=== PATIENT | male | born 1985 | race Caucasian/White ===

== ENCOUNTER → 2024-04-10 | Emergency (ER) | payer MEDICAID ==
[~2024-04-10] VITALS: Ht 170.2 cm; Wt 70.5 kg
[~2024-04-10] MED LIST: ACET-3385 PO; CALC625T66 PO; CALC625T9 PO; HYDR-4808 PO; HYDR50CA7 PO; QUET300T5 PO
[2024-04-10 10:06] VITALS: BP 130/69; PULSE 98; RESP 18; TEMP 98.2; O2SAT 97
== END | disposition home or self-care (01) ==
LOC: EMS 10:05
DX: F20.9 Schizophrenia, unspecified (principal); Z76.0 Encounter for issue of repeat prescription; F12.90 Cannabis use, unspecified, uncomplicated; Z88.6 Allergy status to analgesic agent
CPT/HCPCS: 99281; Z7502

== ENCOUNTER 2024-04-26 09:09 | Emergency (ER) | payer MEDICAID ==
[~2024-04-26] VITALS: Ht 170.2 cm; Wt 75.0 kg
[2024-04-26 09:11] VITALS: TEMP 98.5
[2024-04-26 09:21] VITALS: BP 116/64; PULSE 83; RESP 18; O2SAT 96
[2024-04-26] MEDS ORDERED: HYDR50CA7 PO (09:25)
[2024-04-26] MEDS ORDERED: QUET300T5 PO (09:25)
== END 2024-04-26 10:00 | disposition home or self-care (01) ==
LOC: EMS 09:11
DX: F20.9 Schizophrenia, unspecified (principal); F12.90 Cannabis use, unspecified, uncomplicated; Z76.0 Encounter for issue of repeat prescription; Z72.89 Other problems related to lifestyle; Z88.6 Allergy status to analgesic agent; Z91.018 Allergy to other foods
CPT/HCPCS: 99281; Z7502

== ENCOUNTER 2024-09-11 11:24 | Emergency (ER) | payer MEDICAID, OTHER ==
[~2024-09-11] VITALS: Ht 167.6 cm; Wt 68.2 kg
[~2024-09-11 11:24] MED LIST changes: -ACET-3385 PO; -CALC625T66 PO; -CALC625T9 PO; -HYDR-4808 PO
[2024-09-11 11:28] VITALS: TEMP 98.1
[2024-09-11 13:57] VITALS: BP 131/76; PULSE 95; RESP 18; O2SAT 97
== END 2024-09-11 14:12 | disposition home or self-care (01) ==
LOC: EMS 11:32
DX: H26.8 Other specified cataract (principal); H53.8 Other visual disturbances; F20.9 Schizophrenia, unspecified; F12.90 Cannabis use, unspecified, uncomplicated; Z88.6 Allergy status to analgesic agent; Z91.018 Allergy to other foods; Z79.899 Other long term (current) drug therapy
CPT/HCPCS: 99282; Z7502

== ENCOUNTER 2024-12-03 20:53 | Inpatient (IN) | payer MEDICAID, OTHER ==
[~2024-12-03] VITALS: Ht 175.3 cm; Wt 72.6 kg
[2024-12-03 22:01] LABS: PLATELET COUNT (AUTO) 331 K/uL (150-450); RED BLOOD CELL COUNT(AUTO) 4.97 MIL/uL (4.50-5.90); RED CELL DISTRIBUTION WIDTH 14.1 % (11.5-14.5); WHITE BLOOD COUNT (AUTO) 14.6 K/uL (4.5-11.0)
[2024-12-03 22:14] LABS: CALCIUM, TOTAL 9.3 mg/dL (8.8-10.5); CREATININE 0.64 mg/dL (0.60-1.30); GLOMERULAR FILTR. RATE CALC > 60 mL/min (>60); GLUCOSE,RANDOM 130 mg/dL (70-110); SODIUM SERUM 139 mmol/L (136-145); UREA NITROGEN, BLOOD 8 mg/dL (7-18)
[2024-12-04 00:40] VITALS: O2SAT 98
[2024-12-04 00:47] LABS: COVID AG,FIA SOURCE NASAL SWAB
[2024-12-04 01:00] LABS: SARS-COV2 (COVID) ANTIGEN,FIA Negative (Negative)
[2024-12-04 03:53] VITALS: BP 146/95; PULSE 105; RESP 18; TEMP 98.2; O2SAT 96
[2024-12-04 10:54] VITALS: BP 127/85; PULSE 87; RESP 16; TEMP 98.1; O2SAT 100
[2024-12-04] MEDS ORDERED: GuaiFENesin/D-METHORPHAN [SUGAR-FREE] 200-20MG/10 ML SYRUP UDCUP PO PRN (13:30)
[2024-12-04] MEDS ORDERED: MAG HYDROX/ALUMINUM HYD/SIMETH ES 30 ML SUSPENSION UDCUP PO PRN (13:30)
[2024-12-04] MEDS ORDERED: ALBUTEROL SULFATE HFA 90 MCG/PUFF 8 GM INHALER IH PRN (13:30)
[2024-12-04] MEDS ORDERED: LOPERAMIDE HCL 2 MG CAPSULE PO PRN (13:30)
[2024-12-04] MEDS ORDERED: NICOTINE 14 MG/24 HOUR PATCH TD PRN (13:30)
[2024-12-04] MEDS ORDERED: ACETAMINOPHEN 325 MG TABLET PO PRN (13:30)
[2024-12-04] MEDS ORDERED: PETROLATUM,WHITE 28 GM JELLY TP PRN (13:30)
[2024-12-04] MEDS ORDERED: MAGNESIUM HYDROXIDE SUSPENSION 30 ML UDCUP PO PRN (13:30)
[2024-12-04] MEDS ORDERED: ONDANSETRON 4 MG TABLET PO PRN (13:30)
[2024-12-04] MEDS ORDERED: DOCUSATE SODIUM 100 MG CAPSULE PO PRN (13:30)
[2024-12-04 20:23] VITALS: BP 132/89; PULSE 107; RESP 16; TEMP 98.1; O2SAT 97
[2024-12-04] MEDS: ZOLPIDEM TARTRATE 10 MG TABLET PO PRN (21:24)
[2024-12-05 09:16] LABS: CHOL/HDL RATIO 2.9 (4.2-7.3); LDL CHOL (CALC.) 115.0 mg/dL (0-130)
[2024-12-05] MEDS: PALIPERIDONE 6 MG ER TABLET PO SCH (09:28)
[2024-12-05 09:56] VITALS: BP 118/91; PULSE 100; RESP 16; TEMP 98; O2SAT 96
[2024-12-05 20:42] VITALS: BP 145/96; PULSE 102; RESP 16; TEMP 97.6; O2SAT 96
[2024-12-06 08:57] VITALS: BP 130/91; PULSE 111; RESP 16; TEMP 97.7; O2SAT 98
[2024-12-06 20:22] VITALS: BP 132/84; PULSE 98; RESP 16; TEMP 97.8; O2SAT 98
[2024-12-07 09:39] LABS: PLATELET COUNT (AUTO) 307 K/uL (150-450); RED BLOOD CELL COUNT(AUTO) 5.15 MIL/uL (4.50-5.90); RED CELL DISTRIBUTION WIDTH 13.7 % (11.5-14.5); WHITE BLOOD COUNT (AUTO) 6.4 K/uL (4.5-11.0)
[2024-12-07 14:02] VITALS: BP 119/95; PULSE 101; RESP 16; TEMP 97.8; O2SAT 97
[2024-12-07 21:39] VITALS: BP 139/92; PULSE 86; RESP 18; TEMP 98; O2SAT 98
[2024-12-08 09:40] VITALS: BP 124/94; PULSE 111; RESP 18; TEMP 97.7; O2SAT 99
[2024-12-08 20:34] VITALS: BP 160/105; PULSE 92; RESP 18; TEMP 98.7; O2SAT 99
[2024-12-09] MEDS ORDERED: PALI6TAB PO (09:15)
[2024-12-09] MEDS ORDERED: QUET200T PO (09:15)
[2024-12-09 10:33] VITALS: BP 130/92; PULSE 99; RESP 18; TEMP 97.5; O2SAT 99
== END 2024-12-09 13:10 | disposition home or self-care (01) | DRG 750 ==
LOC: EMS 20:53 → 3EC 12-04 03:00 → UNDOADMIN 12-04 03:00 → 3EC 12-04 04:25
PROVIDERS: ADMIT Psychiatry & Neurology Child & Adolescent Psychiatry; ATTEND Psychiatry & Neurology Child & Adolescent Psychiatry
PROC: GZ58ZZZ Individual Psychotherapy, Cognitive-Behavioral (ICD-10-PCS; principal; 2024-12-04)
PROC: GZ56ZZZ Individual Psychotherapy, Supportive (ICD-10-PCS; 2024-12-04)
DX: F20.0 Paranoid schizophrenia (principal); D72.829 Elevated white blood cell count, unspecified; F10.129 Alcohol abuse with intoxication, unspecified; E78.5 Hyperlipidemia, unspecified; I10 Essential (primary) hypertension; R73.9 Hyperglycemia, unspecified; Z20.822 Contact with and (suspected) exposure to COVID-19; Z79.899 Other long term (current) drug therapy; Z88.6 Allergy status to analgesic agent; Z91.018 Allergy to other foods
CPT/HCPCS: 80048; 80061; 83036; 84443; 85025; 99285; G0480